=== PATIENT | male | born 1935 | race Caucasian/White ===

== ENCOUNTER 2022-12-28 08:41 | Inpatient (IN) ==
[2022-12-28 10:49] VITALS: BMI 21.9
[2022-12-28 12:32] LABS: EOSINOPHILS # (AUTO) 0.1 x10^3/uL (0.0-0.2); LYMPHOCYTES # (AUTO) 0.7 X10^3/uL (1.3-2.9); MEAN PLATELET VOLUME 8.1 fL (7.4-11.0); MONOCYTES # (AUTO) 0.6 x10^3/uL (0.3-0.8); MONOCYTES % (AUTO) 10.5 % (0.0-13.0)
[2022-12-28 12:36] LABS: BASOPHILS % (AUTO) 0.6 % (0.2-1.0); EOSINOPHILS % (AUTO) 1.5 % (0.9-2.9); LYMPHOCYTES % (AUTO) 11.6 % (21.0-51.0); MEAN CORPUSCULAR HEMOGLOBIN 28.4 pg (27.0-34.0); MEAN CORPUSCULAR HGB CONC 34.4 g/dL (33.0-35.0); MEAN CORPUSCULAR VOLUME 82.5 fL (80.0-100.0); NEUTROPHILS # (AUTO) 4.6 x10^3/uL (2.2-4.8); NEUTROPHILS % (AUTO) 75.8 % (42.0-75.0); PLATELET COUNT 222 X10^3/uL (150.0-450.0); RED BLOOD COUNT 3.51 X10^6/uL (4.7-6.0); RED CELL DISTRIBUTION WIDTH 16.5 % (11.6-16.5); WHITE BLOOD COUNT 6.1 X10^3/uL (3.6-10.0)
[2022-12-28 12:47] LABS: ALANINE AMINOTRANSFERASE 13 Units/L (12-78); ALBUMIN 2.4 g/dL (3.4-5.0); ALKALINE PHOSPHATASE 89 Units/L (46-116); ASPARTATE AMINO TRANSFERASE 21 Units/L (15-37); BLOOD UREA NITROGEN 16 mg/dL (7-18); CARBON DIOXIDE 28.7 mmol/L (21-32); CHLORIDE 105 mmol/L (98-107); COR CA(FOR HYPOALB) 9.3 mg/dL (8.5-10.1); CREATININE 1.18 mg/dL (0.70-1.30); GLUCOSE 91 mg/dL (65-99); POTASSIUM 3.9 mmol/L (3.5-5.1); SODIUM 141 mmol/L (136-145); TOTAL PROTEIN 6.5 g/dL (6.4-8.2); eGFR NON BLACK RACES > 60 (>60)
[2022-12-28 12:56] LABS: PLATELET MORPHOLOGY COMMENT NORMAL (NORMAL); TARGET CELLS SLIGHT
[2022-12-28] MEDS: NS 1,000 ML IV 1,000 ML IV SCH (13:44)
[2022-12-28] MEDS: ROCEPHIN VIAL 1 GRAM 1 G in NS 100 ML IV 100 ML IV SCH (13:44)
[2022-12-28 15:33] LABS: BILIRUBIN,URINE 1+ (NEGATIVE); BLOOD/HEMOGLOBIN,URINE 5+ (NEGATIVE); GLUCOSE, URINE NEGATIVE (NEGATIVE); KETONES,URINE 1+ (NEGATIVE); LEUKOCYTE ESTERASE ,URINE 1+ (NEGATIVE); NITRITES,URINE NEGATIVE (NEGATIVE); PH,URINE 6.5 (5.0 - 8.0); PROTEIN,URINE 3+ (NEGATIVE); UROBILINOGEN,URINE 1+ (NORMAL)
[2022-12-28 15:46] LABS: APPEARANCE,URINE CLOUDY (CLEAR); BACTERIA,URINE TRACE /HPF (NEGATIVE); COLOR,URINE BLOODY (YELLOW); RBC,URINE TNTC /HPF (0-3); SQUAMOUS EPITHELIAL CELL,UR NEGATIVE /HPF (NEGATIVE)
--- NOTE | 2022-12-28 18:04 | DR.H&P ---
H&P - History & Physical for Day of: H&P Date: 12/28/22 - Chief Complaint Chief Complaint: UTI, BLOOD IN URINE - History of Present Illness History of Present Illness: PT IS 87 WM, DIRECT ADMIT PER DR HERNANDEZ WITH CYSTITIS, UTI AND HEMATURIA. PT HAS PMH OF RENAL DISEASE, AFIB, CAD, ANEMIA, CHF, AND GERD. PT HAD CT OF ABD/PELVIS ON OUTPT REVEALING EMPHYSEMATOUS CYSTITIS. - Past Medical History Past Medical History: Arthritis, CHF, Coronary Artery Disease, GERD, Hypertension Additional Medical History: AFIB - Past Surgical History Surgical History: Angioplasty/Stents, Ortho Surgery Additional Surgical History: BACK SURGERY, RIGHT TKR - Social History Does patient currently use any type of tobacco product: No Have you used tobacco products in the last 12 months: No Type of Tobacco Use: None Does any household member use tobacco: No Alcohol Use: None Drug Use: None - Review of Systems Constitutional: Malaise Eyes: No Symptoms Reported ENT: No Symptoms Reported Respiratory: No Symptoms Reported Cardiovascular: No Symptoms Reported Gastrointestinal: Nausea Genitourinary: Hematuria Musculoskeletal: Back Pain Skin: No Symptoms Reported Neurological: Weakness - Physical Exam Vital Signs: Vital Signs Temperature 98 F Temperature 97.4 F Temperature 97.9 F Pulse Rate [Left] 67 Pulse Rate [Left] 64 Pulse Rate [Left] 64 Respiratory Rate 18 Respiratory Rate 18 Respiratory Rate 18 Blood Pressure [Left Arm] 95/53 Blood Pressure [Left Arm] 123/59 Blood Pressure [Left Arm] 130/62 O2 Sat by Pulse Oximetry 94 O2 Sat by Pulse Oximetry 99 O2 Sat by Pulse Oximetry 98 Oriented: Normal Eyes: Normal Ear: Normal Nose: Normal Throat: Normal Respiratory: RLL Diminished, LLL Diminished Cardiovascular: Murmur : Normal Auscultation: Bowel Sounds: Normal Palpation: Normal Tenderness: Suprapubic, Mild Skin: Decreased Turgur Musculoskeletal: Back:Lumbar Psychiatric: Anxiety Affect: Anxious Speech Pattern: Clear, Appropriate - Assessment/Plan (1) Emphysematous cystitis Status: Acute Plan: ADMIT, BLOOD AND URINE CULTURES ON ADMISSION. IV HYDRATION WITH STRICT I&OS. VERIFY HOME MEDICATION. IV ROCEPHIN, BP CONTROL. CXR ON ADMISSION (2) UTI (urinary tract infection) Status: Acute (3) Afib Status: Acute (4) CAD (coronary artery disease) Status: Acute (5) CHF (congestive heart failure) Status: Acute - Allergies Allergies/Adverse Reactions: Allergies Allergy/AdvReac Type Severity Reaction Status Date / Time No Known Allergies Allergy Verified 11/02/22 11:13 - Medications Home Medications: Home Medications Medication Instructions Recorded Confirmed ciprofloxacin HCl 500 mg tablet 500 mg PO BID 11/02/22 12/28/22 doxazosin 8 mg tablet 8 mg PO DAILY 11/02/22 12/28/22 nitrofurantoin 1 cap PO BID 11/02/22 12/28/22 monohydrate/macrocrystals 100 mg capsule ondansetron 8 mg disintegrating 8 mg PO Q8H PRN 11/02/22 12/28/22 tablet amiodarone 200 mg tablet 200 mg PO BID 12/28/22 12/28/22 aspirin 81 mg tablet,delayed 81 mg PO DAILY 12/28/22 12/28/22 release atorvastatin 10 mg tablet 10 mg PO QHS 12/28/22 12/28/22
[2022-12-28] MEDS: PROTONIX INJ 40 MG VIAL IVP SCH (18:08)
--- NOTE | 2022-12-28 18:41 | RAD ---
EXAM:CHEST, 1 VIEWHISTORY:HX CHF;COMPARISON:11/22/2022FINDINGS:The lungs are not well inflated. As a result, there are hypoventilatory changes in the bases. The atelectasis or pneumonia which was present in November is no longer identified. Few small linear areas in the lung bases today could be atelectasis there is no pleural effusion or pneumothorax.Heart size is magnified because of technique. There are calcifications in the arteries consistent with atherosclerosis.The bones are unremarkable.IMPRESSION:1. Probable residual basilar atelectasisTHIS IS AN ELECTRONICALLY VERIFIED FINAL REPORT12/28/2022 6:38 PM - Electronically signed by Abraham Oliveros MD
[2022-12-28] MEDS: CORDARONE TAB 200 MG PO SCH (21:14)
[2022-12-29] MEDS: NS 1,000 ML IV 1,000 ML IV SCH ×3 (05:16→20:23)
[2022-12-29 05:57] LABS: BASOPHILS % (AUTO) 0.7 % (0.2-1.0); EOSINOPHILS # (AUTO) 0.1 x10^3/uL (0.0-0.2); EOSINOPHILS % (AUTO) 1.5 % (0.9-2.9); HEMATOCRIT 27.5 % (42.0-54.0); HEMOGLOBIN 9.3 g/dL (13.5-18.0); LYMPHOCYTES # (AUTO) 0.7 X10^3/uL (1.3-2.9); LYMPHOCYTES % (AUTO) 15.1 % (21.0-51.0); MEAN CORPUSCULAR HEMOGLOBIN 28.1 pg (27.0-34.0); MEAN CORPUSCULAR HGB CONC 33.8 g/dL (33.0-35.0); MEAN CORPUSCULAR VOLUME 83.1 fL (80.0-100.0); MEAN PLATELET VOLUME 8.5 fL (7.4-11.0); MONOCYTES # (AUTO) 0.5 x10^3/uL (0.3-0.8); MONOCYTES % (AUTO) 10.6 % (0.0-13.0); NEUTROPHILS # (AUTO) 3.5 x10^3/uL (2.2-4.8); NEUTROPHILS % (AUTO) 72.1 % (42.0-75.0); PLATELET COUNT 236 X10^3/uL (150.0-450.0); RED BLOOD COUNT 3.31 X10^6/uL (4.7-6.0); WHITE BLOOD COUNT 4.9 X10^3/uL (3.6-10.0)
[2022-12-29 06:10] LABS: ALANINE AMINOTRANSFERASE 12 Units/L (12-78); ALBUMIN 2.3 g/dL (3.4-5.0); ALKALINE PHOSPHATASE 83 Units/L (46-116); ASPARTATE AMINO TRANSFERASE 16 Units/L (15-37); BLOOD UREA NITROGEN 14 mg/dL (7-18); CALCIUM 7.8 mg/dL (8.5-10.1); CARBON DIOXIDE 27.6 mmol/L (21-32); CHLORIDE 107 mmol/L (98-107); COR CA(FOR HYPOALB) 9.2 mg/dL (8.5-10.1); CREATININE 1.19 mg/dL (0.70-1.30); GLUCOSE 90 mg/dL (65-99); POTASSIUM 4.2 mmol/L (3.5-5.1); SODIUM 141 mmol/L (136-145); TOTAL PROTEIN 6.1 g/dL (6.4-8.2); eGFR NON BLACK RACES > 60 (>60)
[2022-12-29 06:29] LABS: INR 1.32 (0.8-1.3)
[2022-12-29 06:48] LABS: ANISOCYTOSIS SLIGHT; OVALOCYTES SLIGHT; PLATELET MORPHOLOGY COMMENT NORMAL (NORMAL)
[2022-12-29] MEDS: PROTONIX INJ 40 MG VIAL IVP SCH (08:53)
[2022-12-29] MEDS: CARDURA PO SCH (08:53)
[2022-12-29] MEDS: CORDARONE TAB 200 MG PO SCH ×2 (08:53→20:24)
[2022-12-29] MEDS: ROCEPHIN VIAL 1 GRAM 1 G in NS 100 ML IV 100 ML IV SCH (08:54)
--- NOTE | 2022-12-29 18:50 | PCM.PROG ---
Progress Note - Progress Note for Day of Date of Exam: 12/29/22 - Subjective Subjective: PT IS 87 WM ADMITTED FOR EVALUATION AND TREATMENT OF EMPHYSEMATIOUS CYSITIS, UTI WITH BPH AND GROSS HEMATURIA. PT HAD FAILED ON PO [employer]. PT IS CURRENTLY ON GENTLE IV HYDRATION WITH NS AND IV ROCEPHIN. CULTURES OBTAINED ON ADMISSION. HOLDING PLAVIX DUE TO HEMATURIA. PLAN TO REPEAT AM CT ABD PELVIS TO COMPARE RESULTS FROM PRIOR STUDY AND REPEAT AM LABS INCLUDING URINALYSIS - Past Medical Family Social History Past Med/Fam/Surg Hx: No changes since H&P Allergies: Allergies No Known Allergies Allergy (Verified 11/02/22 11:13) - Review of Systems ROS: No change since H&P - Vital Signs and I&O's Vital Signs: Vital Signs Temperature 98.4 F Temperature 98 F Pulse Rate [Left] 68 Pulse Rate [Left] 66 Respiratory Rate 18 Respiratory Rate 18 Blood Pressure [Left Arm] 120/70 Blood Pressure [Left Arm] 113/62 O2 Sat by Pulse Oximetry 96 O2 Sat by Pulse Oximetry 96 Intake and Output: Intake & Output 12/27/22 12/28/22 12/29/22 12/30/22 11:59 11:59 11:59 11:59 Intake Total 1993 / 1993 1440 / 1440 Output Total 670 / 670 Balance 1324 / 1324 1440 / 1440 - Physical Exam Oriented: Normal Eyes: Normal Ear: Normal Nose: Normal Throat: Normal Respiratory: Diminished Cardiovascular: Murmur : Normal Auscultation: Bowel Sounds: Normal Tenderness: Suprapubic, Mild Skin: Decreased Turgur Musculoskeletal: Back:Lumbar Psychiatric: Anxiety Affect: Anxious Speech Pattern: Clear, Appropriate - Laboratory and Diagnostics Result Diagrams: 12/29/22 05:20 12/29/22 05:20 Labs: 12/28/22 15:18 Urine,Clean Catch Urine Culture - Preliminary Laboratory WBC 4.9 X10^3/uL (3.6-10.0) 12/29/22 05:20 RBC 3.31 X10^6/uL (4.7-6.0) L 12/29/22 05:20 Hgb 9.3 g/dL (13.5-18.0) L 12/29/22 05:20 Hct 27.5 % (42.0-54.0) L 12/29/22 05:20 MCV 83.1 fL (80.0-100.0) 12/29/22 05:20 MCH 28.1 pg (27.0-34.0) 12/29/22 05:20 MCHC 33.8 g/dL (33.0-35.0) 12/29/22 05:20 RDW 17.0 % (11.6-16.5) H 12/29/22 05:20 Plt Count 236 X10^3/uL (150.0-450.0) 12/29/22 05:20 Plt Count Comment Adequate (ADEQUATE) 12/29/22 05:20 MPV 8.5 fL (7.4-11.0) 12/29/22 05:20 Neut % (Auto) 72.1 % (42.0-75.0) 12/29/22 05:20 Lymph % (Auto) 15.1 % (21.0-51.0) L 12/29/22 05:20 [place] % (Auto) 10.6 % (0.0-13.0) 12/29/22 05:20 Eos % (Auto) 1.5 % (0.9-2.9) 12/29/22 05:20 Baso % (Auto) 0.7 % (0.2-1.0) 12/29/22 05:20 Neut # (Auto) 3.5 x10^3/uL (2.2-4.8) 12/29/22 05:20 Lymph # (Auto) 0.7 X10^3/uL (1.3-2.9) L 12/29/22 05:20 [place] # (Auto) 0.5 x10^3/uL (0.3-0.8) 12/29/22 05:20 Eos # (Auto) 0.1 x10^3/uL (0.0-0.2) 12/29/22 05:20 Baso # (Auto) 0.0 X10^3/uL (0.0-0.1) 12/29/22 05:20 Absolute Nucleated RBC 0.0 /100WBC 12/29/22 05:20 Plt Morphology Comment Normal (NORMAL) 12/29/22 05:20 RBC Morphology Abnormal (NORMAL) 12/29/22 05:20 Anisocytosis Slight A 12/29/22 05:20 Target Cells Slight A 12/28/22 12:17 Ovalocytes Slight A 12/29/22 05:20 Acanthocytes (Spur) Slight 12/29/22 05:20 PT 16.2 SECONDS (11.8-14.3) 12/29/22 05:20 INR Target Range - 12/29/22 05:20 INR 1.32 (0.8-1.3) H 12/29/22 05:20 Sodium 141 mmol/L (136-145) 12/29/22 05:20 Corrected Sodium TNP 12/29/22 05:20 Potassium 4.2 mmol/L (3.5-5.1) 12/29/22 05:20 Chloride 107 mmol/L (98-107) 12/29/22 05:20 Carbon Dioxide 27.6 mmol/L (21-32) 12/29/22 05:20 BUN 14 mg/dL (7-18) 12/29/22 05:20 Creatinine 1.19 mg/dL (0.70-1.30) 12/29/22 05:20 Est GFR (MDRD) Af Amer > 60 (>60) 12/29/22 05:20 Est GFR (MDRD) Non-Af > 60 (>60) 12/29/22 05:20 Glucose 90 mg/dL (65-99) 12/29/22 05:20 Calcium 7.8 mg/dL (8.5-10.1) L 12/29/22 05:20 Corrected Calcium 9.2 mg/dL (8.5-10.1) 12/29/22 05:20 Magnesium 2.1 mg/dL (2.0-2.9) 12/28/22 12:17 Total Bilirubin 0.30 mg/dL (0.2-1.0) 12/29/22 05:20 AST 16 Units/L (15-37) 12/29/22 05:20 ALT 12 Units/L (12-78) 12/29/22 05:20 Alkaline Phosphatase 83 Units/L (46-116) 12/29/22 05:20 Total Protein 6.1 g/dL (6.4-8.2) L 12/29/22 05:20 Albumin 2.3 g/dL (3.4-5.0) L 12/29/22 05:20 Globulin 3.8 g/dL (2.5-4.5) 12/29/22 05:20 Albumin/Globulin Ratio 0.6 Ratio (1.1-2.1) L 12/29/22 05:20 Total PSA 2.87 ng/mL (0.13-4.0) 12/28/22 12:17 Specimen Type Clean catch urine 12/28/22 15:18 Urine Color Bloody (YELLOW) 12/28/22 15:18 Urine Appearance Cloudy (CLEAR) 12/28/22 15:18 Urine pH 6.5 (5.0 - 8.0) 12/28/22 15:18 Ur Specific [place] 1.020 (1.000-1.030) 12/28/22 15:18 Urine Protein 3+ (NEGATIVE) 12/28/22 15:18 Urine Glucose (UA) Negative (NEGATIVE) 12/28/22 15:18 Urine Ketones 1+ (NEGATIVE) 12/28/22 15:18 Urine Blood 5+ (NEGATIVE) 12/28/22 15:18 Urine Nitrite Negative (NEGATIVE) 12/28/22 15:18 Urine Bilirubin 1+ (NEGATIVE) 12/28/22 15:18 Urine Urobilinogen 1+ (NORMAL) 12/28/22 15:18 Ur Leukocyte Esterase 1+ (NEGATIVE) 12/28/22 15:18 Urine RBC Tntc /HPF (0-3) A 12/28/22 15:18 Urine WBC 0-2 /HPF (0-5) 12/28/22 15:18 Ur Squamous Epith Cells Negative /HPF (NEGATIVE) 12/28/22 15:18 Urine Bacteria Trace /HPF (NEGATIVE) 12/28/22 15:18 Ur Culture Indicated? Yes/culture set up 12/28/22 15:18 Stl Occult Blood (IFOB) Negative (NEGATIVE) 12/29/22 07:03 - Plan (1) Emphysematous cystitis Status: Acute Plan: BLOOD AND URINE CULTURES ON ADMISSION. IV HYDRATION WITH STRICT I&OS. VERIFY HOME MEDICATION. IV ROCEPHIN, BP CONTROL. CXR ON ADMISSION (2) UTI (urinary tract infection) Status: Acute (3) Afib Status: Acute (4) CAD (coronary artery disease) Status: Acute (5) CHF (congestive heart failure) Status: Acute
[2022-12-29] MEDS: DESYREL PO SCH (20:24)
[2022-12-29] MEDS: LIPITOR TAB 10 MG PO SCH (20:24)
[2022-12-30 06:04] LABS: BASOPHILS % (AUTO) 0.8 % (0.2-1.0); EOSINOPHILS # (AUTO) 0.1 x10^3/uL (0.0-0.2); EOSINOPHILS % (AUTO) 1.6 % (0.9-2.9); HEMATOCRIT 26.7 % (42.0-54.0); LYMPHOCYTES # (AUTO) 0.8 X10^3/uL (1.3-2.9); LYMPHOCYTES % (AUTO) 14.6 % (21.0-51.0); MEAN CORPUSCULAR HGB CONC 33.8 g/dL (33.0-35.0); MEAN CORPUSCULAR VOLUME 82.9 fL (80.0-100.0); MEAN PLATELET VOLUME 8.4 fL (7.4-11.0); MONOCYTES # (AUTO) 0.5 x10^3/uL (0.3-0.8); MONOCYTES % (AUTO) 10.1 % (0.0-13.0); NEUTROPHILS # (AUTO) 3.8 x10^3/uL (2.2-4.8); NEUTROPHILS % (AUTO) 72.9 % (42.0-75.0); PLATELET COUNT 219 X10^3/uL (150.0-450.0); RED BLOOD COUNT 3.22 X10^6/uL (4.7-6.0); RED CELL DISTRIBUTION WIDTH 16.9 % (11.6-16.5); WHITE BLOOD COUNT 5.3 X10^3/uL (3.6-10.0)
[2022-12-30 06:10] LABS: ANISOCYTOSIS SLIGHT; PLATELET MORPHOLOGY COMMENT NORMAL (NORMAL)
[2022-12-30 06:11] LABS: OVALOCYTES SLIGHT; SCHISTOCYTES SLIGHT
[2022-12-30 06:12] LABS: ALANINE AMINOTRANSFERASE 13 Units/L (12-78); ALBUMIN 2.1 g/dL (3.4-5.0); ALKALINE PHOSPHATASE 80 Units/L (46-116); ASPARTATE AMINO TRANSFERASE 19 Units/L (15-37); BLOOD UREA NITROGEN 11 mg/dL (7-18); CALCIUM 7.8 mg/dL (8.5-10.1); CARBON DIOXIDE 28.6 mmol/L (21-32); CHLORIDE 109 mmol/L (98-107); COR CA(FOR HYPOALB) 9.3 mg/dL (8.5-10.1); CREATININE 1.08 mg/dL (0.70-1.30); GLUCOSE 91 mg/dL (65-99); POTASSIUM 3.8 mmol/L (3.5-5.1); SODIUM 142 mmol/L (136-145); TOTAL PROTEIN 5.9 g/dL (6.4-8.2); eGFR NON BLACK RACES > 60 (>60)
[2022-12-30] MEDS ORDERED: OMNIPAQUE 350 mg/mL 100 mL BTL 100 ML ONE (06:26)
[2022-12-30] MEDS ORDERED: CONSULT PHARMACY - POTASSIUM & MAGNESIUM XX SCH (07:00)
--- NOTE | 2022-12-30 07:37 | CT ---
HISTORYAbdominal pain, hematuriaSTUDYCT abdomen pelvis with contrastTechnique: Axial post-contrast images with coronal and sagittal reformats. Dose reduction procedures were used with mA/kv adjusted for body size.[id number]/02/2023FINDINGSBilater al small pleural effusions are identified. The lung bases are clear. Heart is enlarged. Abundant coronary artery calcifications are present. The liver is normal in size and configuration and without focal space-occupying disease. Cholelithiasis is present. There are no findings to suggest cholecystitis the spleen, adrenal glands, and pancreas are within normal limits. Kidneys are unobstructed and without stones or masses. Right renal cysts are present. No ureteral calculi are identified. Calcific atherosclerotic changes present in an ectatic but nondilated abdominal aorta. No enlarged intraperitoneal or retroperitoneal lymphadenopathy is identified. The patient has either a normal short appendix or a normal-appearing appendiceal stump. There are no findings suggestive of enteritis, colitis, or diverticulitis. There is a 3.4 by 2.6 by 2.4 cm supraumbilical ventral hernia which contains mesenteric fat and a small segment of unobstructed colon. Examination of the pelvis demonstrated no evidence for pelvic masses, pelvic fluid, or pelvic lymphadenopathy. Prostate gland is enlarged measuring 5.2 x 4.3 cm. There is diffuse irregular thickening of the bladder wall most likely related to trabeculations from chronic bladder outlet obstruction due to the patient's enlarged prostate. Acute cystitis could also be present. However there is air within the urinary bladder lumen which could be postprocedural or could be due to infection with a gas-forming organism. Historical correlation is recommended. However there also appears to be evidence for air/gas within the bladder wall. Developing emphysematous cystitis is possible. This is an infectious process that requires aggressive therapy. No lytic or blastic skeletal lesions of significance are identified. Postsurgical changes are present in the lower thoracic/upper lumbar spine with hardware present.IMPRESSIONAir/gas within the bladder which could be postprocedural or could be related to infection with a gas-forming organism. Historical correlation is recommended.There also appears to be some gas within the bladder wall itself suggestive of developing emphysematous cystitis. This is an infectious process that requires aggressive therapyDiffuse irregular thickening of the bladder wall likely related to chronic bladder outlet obstruction due to the patient's enlarged prostate. However acute cystitis may also be present.Cholelithiasis without evidence for cholecystitis3.4 x 2.6 x 2.4 cm supraumbilical ventral hernia containing mesenteric fat and a small knuckle of colon, nonobstructedElectronically signed by: TRENT NELSON (Dec 30, 2022 07:35:54)
[2022-12-30] MEDS: CARDURA PO SCH (08:40)
[2022-12-30] MEDS: CORDARONE TAB 200 MG PO SCH ×2 (08:41→20:28)
[2022-12-30] MEDS: ROCEPHIN VIAL 1 GRAM 1 G in NS 100 ML IV 100 ML IV SCH (08:41)
[2022-12-30] MEDS: PROTONIX INJ 40 MG VIAL IVP SCH (08:42)
[2022-12-30] MEDS ORDERED: PHARMACY CONSULT - TOBRAMYCIN XX SCH (09:00)
[2022-12-30] MEDS ORDERED: TOBRAMYCIN SULFATE 400 MG in NS 100 ML IV 100 ML IV SCH (09:00)
[2022-12-30] MEDS ORDERED: K-DUR TAB 20 MEQ PO SCH (09:00)
[2022-12-30] MEDS: NS 1,000 ML IV 1,000 ML IV SCH ×2 (10:26→21:40)
[2022-12-30 15:43] LABS: BILIRUBIN,URINE NEGATIVE (NEGATIVE); BLOOD/HEMOGLOBIN,URINE 5+ (NEGATIVE); GLUCOSE, URINE 3+ (NEGATIVE); KETONES,URINE NEGATIVE (NEGATIVE); LEUKOCYTE ESTERASE ,URINE 1+ (NEGATIVE); NITRITES,URINE NEGATIVE (NEGATIVE); PROTEIN,URINE 2+ (NEGATIVE); UROBILINOGEN,URINE NORMAL (NORMAL)
[2022-12-30 15:49] LABS: APPEARANCE,URINE HAZY (CLEAR); COLOR,URINE YELLOW (YELLOW)
[2022-12-30 15:53] LABS: BACTERIA,URINE TRACE /HPF (NEGATIVE); RBC,URINE TNTC /HPF (0-3); SQUAMOUS EPITHELIAL CELL,UR RARE /HPF (NEGATIVE)
[2022-12-30 15:54] LABS: YEAST,URINE RARE /HPF (NEGATIVE)
[2022-12-30] MEDS: LIPITOR TAB 10 MG PO SCH (20:07)
[2022-12-30] MEDS: DESYREL PO SCH (20:07)
[2022-12-30] MEDS ORDERED: PHARMACY COMMENT IV NR ×2 (21:00)
[2022-12-31 05:43] LABS: BASOPHILS % (AUTO) 0.8 % (0.2-1.0); EOSINOPHILS # (AUTO) 0.1 x10^3/uL (0.0-0.2); EOSINOPHILS % (AUTO) 1.9 % (0.9-2.9); HEMATOCRIT 26.2 % (42.0-54.0); HEMOGLOBIN 9.1 g/dL (13.5-18.0); LYMPHOCYTES # (AUTO) 0.9 X10^3/uL (1.3-2.9); LYMPHOCYTES % (AUTO) 16.4 % (21.0-51.0); MEAN CORPUSCULAR HEMOGLOBIN 28.6 pg (27.0-34.0); MEAN CORPUSCULAR HGB CONC 34.6 g/dL (33.0-35.0); MEAN CORPUSCULAR VOLUME 82.8 fL (80.0-100.0); MEAN PLATELET VOLUME 8.4 fL (7.4-11.0); MONOCYTES # (AUTO) 0.5 x10^3/uL (0.3-0.8); MONOCYTES % (AUTO) 9.2 % (0.0-13.0); NEUTROPHILS # (AUTO) 3.9 x10^3/uL (2.2-4.8); NEUTROPHILS % (AUTO) 71.7 % (42.0-75.0); PLATELET COUNT 230 X10^3/uL (150.0-450.0); RED BLOOD COUNT 3.17 X10^6/uL (4.7-6.0); RED CELL DISTRIBUTION WIDTH 17.4 % (11.6-16.5); WHITE BLOOD COUNT 5.5 X10^3/uL (3.6-10.0)
[2022-12-31 05:56] LABS: ALANINE AMINOTRANSFERASE 16 Units/L (12-78); ALBUMIN 2.1 g/dL (3.4-5.0); ALKALINE PHOSPHATASE 83 Units/L (46-116); ASPARTATE AMINO TRANSFERASE 21 Units/L (15-37); BLOOD UREA NITROGEN 10 mg/dL (7-18); CALCIUM 7.6 mg/dL (8.5-10.1); CARBON DIOXIDE 27.7 mmol/L (21-32); CHLORIDE 106 mmol/L (98-107); COR CA(FOR HYPOALB) 9.1 mg/dL (8.5-10.1); CREATININE 1.02 mg/dL (0.70-1.30); GLUCOSE 86 mg/dL (65-99); POTASSIUM 4.5 mmol/L (3.5-5.1); SODIUM 139 mmol/L (136-145); TOTAL PROTEIN 5.9 g/dL (6.4-8.2); eGFR NON BLACK RACES > 60 (>60)
[2022-12-31 06:00] LABS: ANISOCYTOSIS SLIGHT; PLATELET MORPHOLOGY COMMENT NORMAL (NORMAL); SCHISTOCYTES SLIGHT
[2022-12-31] MEDS: ROCEPHIN VIAL 1 GRAM 1 G in NS 100 ML IV 100 ML IV SCH (08:29)
[2022-12-31] MEDS: CARDURA PO SCH (08:29)
[2022-12-31] MEDS: CORDARONE TAB 200 MG PO SCH ×2 (08:29→20:17)
[2022-12-31] MEDS: PROTONIX INJ 40 MG VIAL IVP SCH (08:29)
[2022-12-31] MEDS: NS 1,000 ML IV 1,000 ML IV SCH (11:45)
[2022-12-31] MEDS: LIPITOR TAB 10 MG PO SCH (20:17)
[2022-12-31] MEDS: DESYREL PO SCH (20:17)
[2023-01-01] MEDS: NS 1,000 ML IV 1,000 ML IV SCH ×3 (00:02→16:59)
[2023-01-01 05:15] LABS: BASOPHILS # (AUTO) 0.1 X10^3/uL (0.0-0.1); BASOPHILS % (AUTO) 0.9 % (0.2-1.0); EOSINOPHILS # (AUTO) 0.1 x10^3/uL (0.0-0.2); EOSINOPHILS % (AUTO) 2.2 % (0.9-2.9); HEMATOCRIT 29.6 % (42.0-54.0); HEMOGLOBIN 10.1 g/dL (13.5-18.0); LYMPHOCYTES % (AUTO) 19.2 % (21.0-51.0); MEAN CORPUSCULAR HEMOGLOBIN 28.4 pg (27.0-34.0); MEAN CORPUSCULAR HGB CONC 34.1 g/dL (33.0-35.0); MEAN CORPUSCULAR VOLUME 83.4 fL (80.0-100.0); MEAN PLATELET VOLUME 8.1 fL (7.4-11.0); MONOCYTES # (AUTO) 0.5 x10^3/uL (0.3-0.8); MONOCYTES % (AUTO) 9.1 % (0.0-13.0); NEUTROPHILS # (AUTO) 3.7 x10^3/uL (2.2-4.8); NEUTROPHILS % (AUTO) 68.6 % (42.0-75.0); PLATELET COUNT 239 X10^3/uL (150.0-450.0); RED BLOOD COUNT 3.55 X10^6/uL (4.7-6.0); RED CELL DISTRIBUTION WIDTH 16.9 % (11.6-16.5); WHITE BLOOD COUNT 5.4 X10^3/uL (3.6-10.0)
[2023-01-01 05:32] LABS: ALANINE AMINOTRANSFERASE 15 Units/L (12-78); ALBUMIN 2.4 g/dL (3.4-5.0); ALKALINE PHOSPHATASE 94 Units/L (46-116); ASPARTATE AMINO TRANSFERASE 21 Units/L (15-37); BLOOD UREA NITROGEN 11 mg/dL (7-18); CALCIUM 8.1 mg/dL (8.5-10.1); CARBON DIOXIDE 26.1 mmol/L (21-32); CHLORIDE 106 mmol/L (98-107); COR CA(FOR HYPOALB) 9.4 mg/dL (8.5-10.1); CREATININE 1.09 mg/dL (0.70-1.30); GLUCOSE 92 mg/dL (65-99); POTASSIUM 4.4 mmol/L (3.5-5.1); SODIUM 140 mmol/L (136-145); TOTAL PROTEIN 6.5 g/dL (6.4-8.2); eGFR NON BLACK RACES > 60 (>60)
[2023-01-01 05:38] LABS: ANISOCYTOSIS SLIGHT; OVALOCYTES SLIGHT; PLATELET MORPHOLOGY COMMENT NORMAL (NORMAL); POIKILOCYTOSIS 1+
[2023-01-01 05:39] LABS: SCHISTOCYTES SLIGHT
[2023-01-01] MEDS ORDERED: TOBRAMYCIN SULFATE 400 MG in NS 100 ML IV 100 ML IV SCH (09:00)
[2023-01-01] MEDS: CORDARONE TAB 200 MG PO SCH ×2 (09:35→20:08)
[2023-01-01] MEDS: ROCEPHIN VIAL 1 GRAM 1 G in NS 100 ML IV 100 ML IV SCH (09:51)
[2023-01-01] MEDS: CARDURA PO SCH (09:51)
[2023-01-01] MEDS: PROTONIX INJ 40 MG VIAL IVP SCH (09:51)
[2023-01-01 11:18] LABS: BILIRUBIN,URINE NEGATIVE (NEGATIVE); BLOOD/HEMOGLOBIN,URINE 5+ (NEGATIVE); GLUCOSE, URINE NEGATIVE (NEGATIVE); KETONES,URINE NEGATIVE (NEGATIVE); LEUKOCYTE ESTERASE ,URINE 1+ (NEGATIVE); NITRITES,URINE NEGATIVE (NEGATIVE); PROTEIN,URINE 1+ (NEGATIVE); UROBILINOGEN,URINE NORMAL (NORMAL)
[2023-01-01 11:25] LABS: APPEARANCE,URINE CLEAR (CLEAR); COLOR,URINE YELLOW (YELLOW)
[2023-01-01 11:26] LABS: BACTERIA,URINE 1+ /HPF (NEGATIVE); GRANULAR CASTS,URINE FEW /LPF (NEGATIVE); HYALINE CASTS, URINE MANY /LPF (NEGATIVE); RBC,URINE TNTC /HPF (0-3); SQUAMOUS EPITHELIAL CELL,UR FEW /HPF (NEGATIVE)
[2023-01-01 19:31] VITALS: RESP 18
[2023-01-01] MEDS: DESYREL PO SCH (20:08)
[2023-01-01] MEDS: LIPITOR TAB 10 MG PO SCH (20:08)
[2023-01-02] MEDS: NS 1,000 ML IV 1,000 ML IV SCH (04:00)
[2023-01-02 05:47] LABS: BASOPHILS # (AUTO) 0.1 X10^3/uL (0.0-0.1); BASOPHILS % (AUTO) 1.2 % (0.2-1.0); EOSINOPHILS # (AUTO) 0.1 x10^3/uL (0.0-0.2); EOSINOPHILS % (AUTO) 1.9 % (0.9-2.9); HEMATOCRIT 28.7 % (42.0-54.0); HEMOGLOBIN 9.7 g/dL (13.5-18.0); LYMPHOCYTES # (AUTO) 0.9 X10^3/uL (1.3-2.9); LYMPHOCYTES % (AUTO) 16.5 % (21.0-51.0); MEAN CORPUSCULAR HEMOGLOBIN 28.3 pg (27.0-34.0); MEAN CORPUSCULAR HGB CONC 33.9 g/dL (33.0-35.0); MEAN CORPUSCULAR VOLUME 83.6 fL (80.0-100.0); MEAN PLATELET VOLUME 8.1 fL (7.4-11.0); MONOCYTES # (AUTO) 0.5 x10^3/uL (0.3-0.8); MONOCYTES % (AUTO) 8.9 % (0.0-13.0); NEUTROPHILS % (AUTO) 71.5 % (42.0-75.0); PLATELET COUNT 251 X10^3/uL (150.0-450.0); RED BLOOD COUNT 3.44 X10^6/uL (4.7-6.0); WHITE BLOOD COUNT 5.6 X10^3/uL (3.6-10.0)
[2023-01-02 05:59] LABS: ALANINE AMINOTRANSFERASE 16 Units/L (12-78); ALBUMIN 2.4 g/dL (3.4-5.0); ALKALINE PHOSPHATASE 94 Units/L (46-116); ASPARTATE AMINO TRANSFERASE 21 Units/L (15-37); BLOOD UREA NITROGEN 15 mg/dL (7-18); CALCIUM 8.1 mg/dL (8.5-10.1); CARBON DIOXIDE 27.4 mmol/L (21-32); CHLORIDE 106 mmol/L (98-107); COR CA(FOR HYPOALB) 9.4 mg/dL (8.5-10.1); CREATININE 1.24 mg/dL (0.70-1.30); GLUCOSE 95 mg/dL (65-99); POTASSIUM 4.5 mmol/L (3.5-5.1); SODIUM 139 mmol/L (136-145); TOTAL PROTEIN 6.4 g/dL (6.4-8.2); eGFR NON BLACK RACES 59 (>60)
[2023-01-02 06:00] LABS: ANISOCYTOSIS SLIGHT; PLATELET MORPHOLOGY COMMENT NORMAL (NORMAL); POIKILOCYTOSIS 1+
[2023-01-02 06:01] LABS: OVALOCYTES SLIGHT; SCHISTOCYTES SLIGHT
[2023-01-02 08:24] LABS: BILIRUBIN,URINE NEGATIVE (NEGATIVE); BLOOD/HEMOGLOBIN,URINE 4+ (NEGATIVE); GLUCOSE, URINE NEGATIVE (NEGATIVE); KETONES,URINE NEGATIVE (NEGATIVE); LEUKOCYTE ESTERASE ,URINE 1+ (NEGATIVE); NITRITES,URINE NEGATIVE (NEGATIVE); PROTEIN,URINE 1+ (NEGATIVE); UROBILINOGEN,URINE NORMAL (NORMAL)
[2023-01-02 08:26] LABS: APPEARANCE,URINE CLEAR (CLEAR); COLOR,URINE PALE YELLOW (YELLOW)
[2023-01-02 08:32] LABS: BACTERIA,URINE NEGATIVE /HPF (NEGATIVE); GRANULAR CASTS,URINE RARE /LPF (NEGATIVE); SQUAMOUS EPITHELIAL CELL,UR RARE /HPF (NEGATIVE)
[2023-01-02] MEDS ORDERED: OMNIPAQUE 350 mg/mL 100 mL BTL 100 ML ONE (08:50)
[2023-01-02] MEDS ORDERED: NS 100 ML IV 100 ML ONE (08:50)
--- NOTE | 2023-01-02 09:51 | CT ---
HISTORYEmphysematous cystitisSTUDYCT abdomen pelvis with contrastTechnique: Axial post-contrast images with coronal and sagittal reformats. Dose reduction procedures were used with mA/kv adjusted for body size.COMPARISONCT abdomen pelvis 12/30/2022FINDINGSBilateral small pleural effusions are again identified not significantly changed. Lung bases are free of acute infiltrates. Heart remains minimally enlarged. Abundant coronary artery calcifications are present. The liver is normal in size and configuration without focal space-occupying disease. Re- demonstrated is cholelithiasis without evidence for cholecystitis. The spleen, adrenal glands, and pancreas appear within normal limits. There is some pancreatic atrophy present. Kidneys are unobstructed and without stones or masses. There is a right renal cyst present. No ureteral calculi are identified. Calcific atherosclerotic changes present in a nondilated but ectatic abdominal aorta. No intraperitoneal or retroperitoneal lymphadenopathy of significance is identified. The patient either has a normal short appendix or a noninflamed slightly prominent appendiceal stump present. Re-demonstrated is a midline periumbilical fat containing ventral hernia which also contains a knuckle of large bowel but without evidence for obstruction or strangulation. There are no findings suggestive of enteritis, colitis, or diverticulitis. Diffuse diverticulosis of the descending colon identified. The bladder is distended. There is improvement in the diffuse irregular bladder wall thickening present on the prior examination. There is decreasing gas within the bladder wall compared to the prior examination suggesting some improvement in the changes which suggested emphysematous cholecystitis. There is still air/gas within the bladder lumen which could be postprocedural or due to infection with a gas-forming organism. No pelvic masses, pelvic fluid, or pelvic lymphadenopathy is identified. Prostate gland is enlarged. No lytic or blastic skeletal lesions of significance identified. Postsurgical changes present in the lower thoracic/upper lumbar spine.IMPRESSIONImprovement in the diffuse irregular bladder wall thickening noted on the prior examination. Bladder is distended of today's examination. Likely on the basis of some element of bladder outlet obstruction due to the patient's enlarged prostate glandPersistent air/gas within the bladder lumen which could be postprocedural or due to infection with a gas-forming organismDecreasing gas within the bladder wall suggesting improvement in what likely was early emphysematous cystitisNo change previously described supraumbilical ventral hernia containing mesenteric fat and a small knuckle of colon, nonobstructedCholelithiasis without evidence for cholecystitisElectronically signed by: TRENT NELSON (Jan 02, 2023 09:50:03)
[2023-01-02] MEDS ORDERED: PHARMACY COMMENT IV NR (10:30)
[2023-01-02] MEDS: ROCEPHIN VIAL 1 GRAM 1 G in NS 100 ML IV 100 ML IV SCH (10:33)
[2023-01-02] MEDS: CORDARONE TAB 200 MG PO SCH (10:34)
[2023-01-02] MEDS: CARDURA PO SCH (10:34)
[2023-01-02] MEDS: PROTONIX INJ 40 MG VIAL IVP SCH (10:34)
[2023-01-02 12:15] VITALS: BP 143/74; PULSE 76; TEMP 97.9; O2SAT 98
== END 2023-01-02 13:38 | disposition home or self-care (01) | DRG 690 ==
LOC: MED/SURG
PROVIDERS: ADMIT Internal Medicine; ATTEND Internal Medicine
DX: I50.9 Heart failure, unspecified; R79.1 Abnormal coagulation profile; I38 Endocarditis, valve unspecified; N40.1 Benign prostatic hyperplasia with lower urinary tract symptoms; K21.9 Gastro-esophageal reflux disease without esophagitis; R53.1 Weakness; I25.10 Atherosclerotic heart disease of native coronary artery without angina pectoris; N30.81 Other cystitis with hematuria